=== PATIENT | male | born 1990 | race African-American/Black ===

== ENCOUNTER 2025-01-22 13:36 | Emergency (ER) | payer MEDICAID ==
[~2025-01-22] VITALS: Ht 172.7 cm; Wt 129.4 kg
[~2025-01-22 13:36] MED LIST: ONDA4TAB6 PO
[2025-01-22 13:46] VITALS: BP 117/70; PULSE 118; RESP 18; TEMP 98.6; O2SAT 96
[2025-01-22] MEDS ORDERED: AMOX-117 PO (13:52)
--- NOTE | 2025-01-22 13:52 | Physician Documentation ---
History of Present Illness ~ Chief Complaint: Sore Throat Stated Complaint: THROAT PAIN Time Seen by MD: 13:49 Source: patient Mode of Arrival: POV Exam Limitations: no limitations HPI 34-year-old male with sore throat x2 days. No difficulty breathing or swallowing. Patient has had history of strep throat. No fevers. Medication Reconciliation Allergies: Coded Allergies: No Known Allergies (Unverified , 09/09/15) Scheduled Ondansetron Hcl (Zofran), 1 TAB PO Q6H Past Medical History Past Medical History: No Pertinent History Past Surgical History: no surgical history Alcohol Use: Occasionally Drug Use: marijuana Lives In: Home Review of Systems All Other Systems at this time: Reviewed and Negative ENT: Reports: see HPI Physical Exam Physical Exam General: Alert, no apparent distress. HEENT: moist mucous membranes. Plus three tonsils with exudate and lymphadenopathy Neck: Full range of motion. Respiratory: No respiratory distress speaking in full sentences Chest: No accessory muscle use. Cardiovascular: Appears well perfused Neurologic: Oriented x4. Psychiatric: Normal mood and affect. Skin: Normal color, warm and dry. No edema, no ecchymosis. Medical Decision Making Additional information obtaine: N/A Findings tonsils swollen with exudate. Antibiotics prescribed to follow up with primary care Ear Diff. Dx: Considerations: Unlikely: Abrasion, Cerumen impaction, Foreign body, Otitis externa, Barotrauma, Otitis media, Perforation, Referred pain- dental, Referred pain-pharyngitis, Referred pain-sinusitis, Referred pain-TMJ syn., Tympanic Membrane Injury, Other Eye Diff. Dx: Considerations: Unlikely: Chalazoin, Conjuctivits-allergic, Conjuctivitis-bacterial, Conjuctivits-chlamydial, Conjuctivitis-viral, Corneal abrasion, Corneal laceration, Corneal ulceration, Foreign body-conjuctiva, Foreign body-corneal, Foreign body-intraocular, Foreign body-lid, Glaucoma, Globe rupture, Hordeolum, Iritis, Orbital cellulitis, Periobital cellulitis, Retinal artery occulsion, Retinal vein occlusion, Rust ring, Subconjunctival hem, Ultraviolet keratitis, Uveitis, Vitreous hemorrhage, Other Nose Diff. Dx: Considerations: Unlikely: Abrasion, Anterior nasal bleed, Avulsion, Contusion, Coagulopathy, Fracture-nasal bone, Fracture-septum, Hypertension, Laceration, Other, Posterior nasal bleed, Retained foreign body, Septal hematoma Tooth Diff. Dx: Considerations: Unlikely: Alveolar fracture, Aveolar osteitis, ANUG, Facial cellulitis, Periapical abscess, Periodontal abscess, Post- extraction bleeding, Pulpitis, Trigeminal neuralgia, Tooth-avulsion, Tooth-eruption, Tooth-fracture, Tooth-subluxation, Other Throat Diff Dx: Considerations: Include: Epiglottitis, Peritonsillar abscess, Peritonsillar cellulitis, Pharyngitis-strepococcal, URI Departure Time of Disposition: 13:51 Disposition: 01 HOME / SELF CARE / HOMELESS Impression: Primary Impression: Sore throat Condition: Stable Discharge Instructions: Sore Throat, Strep Throat, Adult Additional Instructions: Antibiotics as prescribed and follow up with primary care as needed. Referrals: NO PRIMARY CARE PROVIDER (PCP) Prescriptions Amox Tr/Potassium Clavulanate (Augmentin 875-125 Tablet) 1 Each Tablet 1 TAB PO Q12H for 10 Days, #20 TAB Prov: ESTHER FRENCH NP 01/22/25 Education Educated: Patient Educated regarding: diagnosis, treatment, need for follow up Signature Scribe Signature: No scribe Attestation: The note accurately reflects work and decisions made by me.Esther STEPHENS 01/22/25 13:52 ESTHER FRENCH NP Jan 22, 2025 13:52
== END 2025-01-22 14:03 | disposition home or self-care (01) ==
LOC: ER 13:36
DX: J02.9 Acute pharyngitis, unspecified (principal)
CPT/HCPCS: 99283